=== PATIENT | female | born 1930 | race Hispanic/Latino ===

== ENCOUNTER 2021-07-02 21:15 | Emergency (ER) | payer MEDICARE ==
[~2021-07-02] VITALS: Ht 162.6 cm; Wt 81.6 kg
[2021-07-02] MEDS ORDERED: PIPERACILLIN/TAZOBACTAM 3.375 GM in SODIUM CHLORIDE 0.9% 50ML 50 ML IV STA (21:37)
[2021-07-02] MEDS ORDERED: PIPERACILLIN/TAZOBACTAM 3.375 GM VIAL ONE (21:55)
[2021-07-02] MEDS ORDERED: SODIUM CHLORIDE 0.9% 250ML 250 ML ONE (21:56)
[2021-07-02] MEDS ORDERED: BACTRIM DS TAB1 EACH PO (22:30)
[2021-07-02] MEDS ORDERED: CEPHALEXIN500 MG PO (22:30)
== END 2021-07-02 22:59 | disposition home or self-care (01) ==
LOC: FSED 21:30
DX: L03.116 Cellulitis of left lower limb (principal); L03.115 Cellulitis of right lower limb; E11.65 Type 2 diabetes mellitus with hyperglycemia; I10 Essential (primary) hypertension
CPT/HCPCS: 80053; 83880; 85025; 99283; J2543; J7050

== ENCOUNTER 2021-10-19 12:10 | Inpatient (IN) | payer MEDICARE ==
[~2021-10-19] VITALS: Ht 162.6 cm; Wt 81.6 kg
[~2021-10-19 12:10] MED LIST: BACTRIM DS TAB1 EACH PO; CEPHALEXIN500 MG PO
[2021-10-19] MEDS ORDERED: SODIUM CHLORIDE 0.9% 1000ML 1,000 ML IV ONE (12:30)
[2021-10-19] MEDS ORDERED: DIGOXIN INJ 0.25 MG/ML 2 ML AMP IV ONE (12:45)
[2021-10-19 13:10] LABS: CLARITY,URINE SL CLOUDY (CLEAR); COLOR,URINE YELLOW (YELLOW); KETONES,URINE NEGATIVE (NEGATIVE); LEUKOCYTE ESTERASE ,URINE 1+ (NEGATIVE); NITRITE,URINE NEGATIVE (NEGATIVE); PROTEIN,URINE DIPSTICK 2+ (NEGATIVE)
[2021-10-19 13:11] LABS: ALBUMIN 2.8 g/dL (3.5-5.0); ALBUMIN/GLOBULIN RATIO 0.8 (0.8-2.0); CALCIUM 7.9 mg/dL (8.4-10.2); CREATININE, SERUM 1.06 mg/dL (0.57-1.11); URINE UROBILINOGEN 0.2 mg/dL (0.2 - 1)
[2021-10-19 13:12] LABS: LIPASE 14 U/L (8-78); MAGNESIUM 1.9 MG/DL (1.3-2.1)
[2021-10-19 13:17] LABS: BACTERIA,URINE MANY /HPF; EPITHELIAL CELLS,URINE FEW /LPF; WBC,URINE (MAN) >50 /HPF (0-5)
[2021-10-19 13:18] LABS: MUCUS,URINE FEW (RARE); RENAL EPITHELIAL CELLS,URINE MODERATE; TRANSITIONAL EPI CELLS,URINE FEW
[2021-10-19 13:28] LABS: BASOPHILS % 0.2 % (0.0-1.0); EOSINOPHILS % 0.2 % (0.0-6.0); HEMATOCRIT 27.5 % (34.2-44.1); HEMOGLOBIN 9.1 g/dL (12.0-16.0); LYMPHOCYTES # (AUTO) 0.2 (1.0-3.2); LYMPHOCYTES % 1.9 % (18.0-39.1); MEAN CORPUSCULAR HEMOGLOBIN 33.3 pg (28-32); MEAN CORPUSCULAR HGB CONC 33.1 g/dL (31-35); MEAN CORPUSCULAR VOLUME 100.7 fL (81-99); MONOCYTES # (AUTO) 0.7 (0.2-0.8); MONOCYTES % 6.3 % (4.4-11.3); NEUTROPHILS # (AUTO) 9.8 (2.1-6.9); NEUTROPHILS % 90.8 % (38.7-80.0); PLATELET COUNT 261 x10e3/uL (140-360); RED BLOOD COUNT 2.73 x10e6/uL (3.6-5.1); RED CELL DISTRIBUTION WIDTH 13.3 % (11.7-14.4)
[2021-10-19] MEDS ORDERED: ONDANSETRON HCL INJ 2MG/ML 2ML 2 MG/ML VIAL IV PRN (14:15)
[2021-10-19] MEDS ORDERED: SODIUM CHLORIDE FLUSH 10 ML SYR INJ PRN (14:15)
[2021-10-19] MEDS ORDERED: IOPAMIDOL 370 MG/ML 100 ML INFUS..BTL INJ ONE (14:20)
[2021-10-19] MEDS ORDERED: DEXTROSE 50% SYRINGE 50 ML IV PRN (14:30)
[2021-10-19 14:52] LABS: CHOL/HDL RATIO 2.3 (3.0-3.6)
[2021-10-19 15:37] LABS: FERRITIN 69.17 ng/mL (4.63-204.00)
[2021-10-19 16:13] VITALS: BP 130/81
[2021-10-19] MEDS: INSULIN REGULAR, HUMAN 100 UNIT/1 ML SQ SCH ×2 (16:17→22:06)
[2021-10-19] MEDS: SODIUM CHLORIDE 0.9% 1000ML 1,000 ML IV SCH (16:40)
[2021-10-19] MEDS: METOPROLOL TARTRATE 25 MG TAB PO SCH ×2 (16:40→22:05)
[2021-10-19 16:56] VITALS: BP 165/49
[2021-10-19] MEDS ORDERED: FUROSEMIDE40 MG PO (17:05)
[2021-10-19] MEDS ORDERED: JANUVIA50 MG PO (17:05)
[2021-10-19] MEDS ORDERED: FERROUS SULFAT325 MG PO (17:05)
[2021-10-19] MEDS ORDERED: MYRBETRIQ25 MG PO (17:05)
[2021-10-19] MEDS ORDERED: NIFEDIPINE ER30 M1 PO (17:05)
[2021-10-19 20:00] VITALS: BP 126/50
[2021-10-19 21:00] VITALS: BP 126/50
[2021-10-20] VITALS (7 sets, daily range): BP systolic 127–154; BP diastolic 52–61
[2021-10-20] MEDS: METOPROLOL TARTRATE 25 MG TAB PO SCH ×3 (05:54→21:51)
[2021-10-20] MEDS: SODIUM CHLORIDE 0.9% 1000ML 1,000 ML IV SCH (06:18)
[2021-10-20 06:23] LABS: BASOPHILS % 0.4 % (0.0-1.0); EOSINOPHILS # (AUTO) 0.2 (0.0-0.4); EOSINOPHILS % 3.9 % (0.0-6.0); HEMATOCRIT 24.8 % (34.2-44.1); LYMPHOCYTES # (AUTO) 0.4 (1.0-3.2); LYMPHOCYTES % 7.1 % (18.0-39.1); MEAN CORPUSCULAR HEMOGLOBIN 33.2 pg (28-32); MEAN CORPUSCULAR HGB CONC 32.3 g/dL (31-35); MEAN CORPUSCULAR VOLUME 102.9 fL (81-99); MONOCYTES # (AUTO) 0.8 (0.2-0.8); MONOCYTES % 15.4 % (4.4-11.3); NEUTROPHILS # (AUTO) 3.7 (2.1-6.9); NEUTROPHILS % 72.6 % (38.7-80.0); PLATELET COUNT 310 x10e3/uL (140-360); RED BLOOD COUNT 2.41 x10e6/uL (3.6-5.1); RED CELL DISTRIBUTION WIDTH 13.2 % (11.7-14.4)
[2021-10-20 06:57] LABS: ANION GAP 14.1 mmol/L (8-16); CALCIUM 7.7 mg/dL (8.4-10.2); CREATININE, SERUM 1.06 mg/dL (0.57-1.11); POTASSIUM 4.1 mmol/L (3.5-5.1)
[2021-10-20] MEDS: INSULIN REGULAR, HUMAN 100 UNIT/1 ML SQ SCH ×5 (07:30→21:00)
[2021-10-20] MEDS: SODIUM FERRIC GLUCONATE COMPLX 125 MG in SODIUM CHLORIDE 0.9% 100 ML 100 ML IV SCH (08:50)
[2021-10-20 13:48] LABS: C DIFFICILE TOXIN A&B AMP PROB NEGATIVE (NEGATIVE); OCCULT BLOOD STOOL POSITIVE (NEGATIVE)
[2021-10-20] MEDS: METRONIDAZOLE 500MG/NS 100ML 100 ML IV SCH (21:52)
[2021-10-21] VITALS (8 sets, daily range): BP systolic 141–174; BP diastolic 46–65
[2021-10-21] MEDS: METRONIDAZOLE 500MG/NS 100ML 100 ML IV SCH ×3 (05:13→21:58)
[2021-10-21] MEDS: INSULIN REGULAR, HUMAN 100 UNIT/1 ML SQ SCH ×4 (07:30→20:50)
[2021-10-21] MEDS: SODIUM FERRIC GLUCONATE COMPLX 125 MG in SODIUM CHLORIDE 0.9% 100 ML 100 ML IV SCH (09:05)
[2021-10-21] MEDS: METOPROLOL TARTRATE 25 MG TAB PO SCH ×2 (09:05→20:49)
[2021-10-22] VITALS: BP 151/52
[2021-10-22 04:00] VITALS: BP 173/68
[2021-10-22] MEDS: METRONIDAZOLE 500MG/NS 100ML 100 ML IV SCH (05:31)
[2021-10-22] MEDS: INSULIN REGULAR, HUMAN 100 UNIT/1 ML SQ SCH (07:30)
[2021-10-22 07:53] VITALS: BP 151/65
[2021-10-22 09:00] VITALS: BP 151/65
[2021-10-22] MEDS: METOPROLOL TARTRATE 25 MG TAB PO SCH (09:14)
[2021-10-22] MEDS: SODIUM FERRIC GLUCONATE COMPLX 125 MG in SODIUM CHLORIDE 0.9% 100 ML 100 ML IV SCH (09:17)
[2021-10-22] MEDS ORDERED: LOPRESSOR25 MG PO (10:32)
[2021-10-22] MEDS ORDERED: FLAGYL375 MG PO (10:33)
== END 2021-10-22 11:37 | disposition home or self-care (01) | DRG 683 ==
LOC: ER 12:25 → ERHOLD 14:04 → MED/SURG2 15:51
PROVIDERS: ADMIT Internal Medicine; ATTEND Internal Medicine
DX: N17.9 Acute kidney failure, unspecified (principal); N39.0 Urinary tract infection, site not specified; K92.1 Melena; R19.7 Diarrhea, unspecified; I48.91 Unspecified atrial fibrillation; Z79.01 Long term (current) use of anticoagulants; E11.9 Type 2 diabetes mellitus without complications; E78.5 Hyperlipidemia, unspecified; Z85.42 Personal history of malignant neoplasm of other parts of uterus; D53.9 Nutritional anemia, unspecified; E66.9 Obesity, unspecified; Z68.30 Body mass index [BMI] 30.0-30.9, adult; D50.9 Iron deficiency anemia, unspecified
CPT/HCPCS: 36415; 71045; 74177; 80048; 80053; 80061; 81001; 82270; 82607; 82728; 82948; 83036; 83540; 83690; 83735; 84466; 84484; 85025; 87045; 87086; 87177; 87328; 87493; 93005; 93306; 96361; 99285; J0696; J1160; J2916; J7030; Q9967